=== PATIENT | female | born 1985 | race Caucasian/White ===

== ENCOUNTER 2024-01-22 00:16 | Emergency (ER) | payer BC ==
[~2024-01-22] VITALS: Ht 172.7 cm; Wt 65.8 kg
[2024-01-22 00:16] VITALS: BP_SYST 163; PULSE 59; RESP 20; TEMP 98.2; O2SAT 99
[2024-01-22] MEDS: methylPREDNISolone SOD SUCC/PF 62.5 MG/ML VIAL IM ONE (00:39)
[2024-01-22] MEDS: EPINEPHRINE HCL/PF 1 MG/ML AMP SUBCUT ONE (00:39)
[2024-01-22] MEDS ORDERED: HYDC2.5% TP (01:14)
[2024-01-22] MEDS ORDERED: METH-776 PO (01:14)
[2024-01-22 01:20] VITALS: BP_SYST 132; PULSE 60; RESP 20; TEMP 98.2; O2SAT 99
== END 2024-01-22 01:20 | disposition home or self-care (01) ==
LOC: SED 00:16
DX: T63.481A Toxic effect of venom of other arthropod, accidental (unintentional), initial encounter (principal); R21 Rash and other nonspecific skin eruption; Y92.89 Other specified places as the place of occurrence of the external cause; Z79.899 Other long term (current) drug therapy
CPT/HCPCS: 99284; 96372; J0171; J2930